=== PATIENT | male | born 1955 | race Caucasian/White ===

== ENCOUNTER 2017-04-10 17:23 | Emergency (ER) | payer BC, OTHER ==
[2017-04-10 17:39] VITALS: BP 146/89
[2017-04-10] MEDS ORDERED: Diphtheria,Pertussis(Acell),Tetanus Vaccine 0.5 ML SDV inactive IM ONE (17:44)
[2017-04-10] MEDS ORDERED: Lidocaine 1% 50 ML MDV INJECT ONE (17:44)
--- NOTE | 2017-04-10 17:55 | EDM.PDOC ---
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 He has a large laceration to the volar aspect of that finger. He has good sensation distally and he can move the finger. His tetanus has been updated about 7 years ago. He is left handed. Onset: Sudden Duration: Minutes: Location: Reports: Upper Extremity, Right (ring finger) Quality: Reports: Sharp Severity: Moderate Improves with: Reports: None Worsens with: Reports: Movement Context: Reports: Activity (He was working cattle) Associated Symptoms: Reports: No Other Symptoms Right 4-Ring finger Pain Score (Numeric/FACES): 6 - Related Data Allergies Allergy/AdvReac Type Severity Reaction Status Date / Time No Known Allergies Allergy Verified 04/10/17 17:39 Home Meds: Home Meds Cephalexin [Keflex] 500 mg PO Q6HR #40 cap 04/10/17 [Rx] Finasteride [Proscar] 5 mg PO DAILY 04/10/17 [History] Hydrocodone/Acetaminophen [Hydrocodon-Acetaminophen 5-325] 1 - 2 each PO Q6HR PRN #20 tablet 04/10/17 [Rx] Tamsulosin [Flomax] 1 tab PO DAILY 04/10/17 [History] Past Medical History Cardiovascular History: Reports: Aneurysm Genitourinary History: Reports: BPH Social & Family History - Tobacco Use Smoking Status *Q: Never Smoker - Caffeine Use Caffeine Use: Reports: Coffee - Recreational Drug Use Recreational Drug Use: No ED ROS GENERAL - Review of Systems Review Of Systems: See Below Constitutional: Reports: No Symptoms HEENT: Reports: No Symptoms Respiratory: Reports: No Symptoms Cardiovascular: Reports: No Symptoms Endocrine: Reports: No Symptoms GI/Abdominal: Reports: No Symptoms : Reports: No Symptoms Musculoskeletal: Reports: Other (Right ring finger laceration) ED EXAM, SKIN/RASH Exam: See Below Exam Limited By: No Limitations General Appearance: Alert, No Apparent Distress Ears: Normal External Exam Nose: Normal Inspection Head: Atraumatic, Normocephalic Neck: Normal Inspection Respiratory/Chest: No Respiratory Distress Extremities: Other (10cm laceration to the volar aspect of the right ring finger. He has good sensation distally and he can move the finger.) ED SKIN PROCEDURES - Laceration/Wound Repair Right Finger Lac/wound length in cm: 10 Appearance: subcutaneous, stellate Distal NVT: neuro & vascular intact, no tendon injury Anesthetic Type: digital Local anesthesia - Lidocaine (Xylocaine): 1% plain Skin prep: chlorhexidine (hibiciens), saline Exploration/Debridement/Repair: wound explored, in a bloodless field, explored to base, no foreign material found Closed with: sutures Suture size: 4-0 # of sutures: 14 Suture type: nylon, interrupted, simple Tetanus status addressed: Yes Complications: No Course - Vital Signs Last Recorded V/S: Last Vital Signs Temp 98.7 F 04/10/17 17:33 Pulse 85 04/10/17 17:33 Resp 16 04/10/17 17:33 BP 146/89 H 04/10/17 17:33 Pulse Ox 99 04/10/17 17:33 - Orders/Labs/Meds Orders: Active Orders 24 hr Category Date Time Status Vaccines to be Administered [RC] PER UNIT ROUTINE Care 04/10/17 17:44 Active Fingers Fourth Digit Rt F8 [CR] Stat Exams 04/10/17 17:44 Taken Meds: Medications Discontinued Medications Generic Name Dose Route Start Last Admin Trade Name Anisha PRN Reason Stop Dose Admin Diphtheria/Tetanus/Acell Pertussis 0.5 ml 04/10/17 17:44 04/10/17 18:03 Boostrix IM 04/10/17 17:45 0.5 ml .ONCE ONE Administration Lidocaine HCl 50 ml 04/10/17 17:44 04/10/17 18:01 Xylocaine 1% INJECT 04/10/17 17:45 50 ml ONETIME ONE Administration - Re-Assessments/Exams Free Text/Narrative Re-Assessment/Exam: 04/10/17 17:54 I have ordered an x-ray of his finger and I will up date his tetanus. 04/10/17 19:08 His x-ray did not show any fracture. I was able to examine the wound and there was no tendon involvement. I sutured the laceration. He had a small triangular patch of skin missing. That should heal by secondary intention. I will have him follow up with Dr Grayson. I will give him something for the pain and keflex to avoid infection. Departure - Departure Time of Disposition: 19:10 Disposition: Home, Self-Care 01 Condition: good Clinical Impression: Laceration of ring finger Qualifiers: Encounter type: initial encounter Qualified Code(s): S61.218A - Laceration without foreign body of other finger without damage to nail, initial encounter - Discharge Information Prescriptions: Cephalexin [Keflex] 500 mg PO Q6HR #40 cap Hydrocodone/Acetaminophen [Hydrocodon-Acetaminophen 5-325] 1 - 2 each PO Q6HR PRN #20 tablet PRN Reason: Pain Referrals: Brent Grayson MD [Physician] - 1 Week Forms: ED Department Discharge Additional Instructions: Soak your finger in warm soapy water 2 times per day and apply antibiotic ointment after. Have the sutures removed in 7 to 10 days. Take the keflex 4 times per day to avoid infection. Take the hydrocodone every 6 hours as needed for pain. Follow up with Dr Grayson next week. Please return if you are worse. Look for any sign of infection such as redness, swelling, pain and drainage. - My Orders Last 24 Hours: My Active Orders 04/10/17 17:44 Vaccines to be Administered [RC] PER UNIT ROUTINE Fingers Fourth Digit Rt F8 [CR] Stat - Assessment/Plan Last 24 Hours: My Active Orders 04/10/17 17:44 Vaccines to be Administered [RC] PER UNIT ROUTINE Fingers Fourth Digit Rt F8 [CR] Stat
--- NOTE | 2017-04-12 07:37 | CR ---
Right fourth finger: Four views centered to the right fourth finger were obtained. Comparison: No previous hand or finger exam. Soft tissue swelling and soft tissue air is identified. Joint spaces are maintained. No acute fracture or other abnormality is seen. Impression: 1. Soft tissue injury as described above. 2. No acute bony abnormality is identified on right fourth finger study. Diagnostic code #3
== END 2017-04-10 19:30 | disposition home or self-care (01) ==
LOC: JD.ED 17:23
DX: S61.214A Laceration without foreign body of right ring finger without damage to nail, initial encounter (principal); Z23 Encounter for immunization; Z79.899 Other long term (current) drug therapy; W23.1XXA Caught, crushed, jammed, or pinched between stationary objects, initial encounter
CPT/HCPCS: 12004; 73140-26-F8; 73140-F8; 90471; 90715; 99283; 99283-25

== ENCOUNTER 2021-10-30 07:39 | Day surgery (SDC) | payer OTHER ==
--- NOTE | 2021-10-30 07:41 | PCM.PREANE ---
Preanesthetic Assessment - Procedure Proposed Procedure: Right cataract extraction with intraocular lens implant - Anesthesia/Transfusion/Family Hx Anesthesia History: Prior Anesthesia Without Reaction Family History of Anesthesia Reaction: No Transfusion History: No Prior Transfusion(s) Intubation History: Unknown - Review of Systems General: No Symptoms Pulmonary: Cough (allergy cough-has had for months) Cardiovascular: No Symptoms Gastrointestinal: No Symptoms Neurological: No Symptoms Other: Reports: None - Physical Assessment NPO Status Date: 10/29/21 NPO Status Time: 22:00 Vital Signs: 101/67 HR 58 96% RR 16 97.7 Height: 1.8 m Weight: 81.647 kg ASA Class: 2 Mental Status: Alert & Oriented x3 Dentition: Reports: Normal Dentition, [place](s), [place] Thyro-Mental Finger Breadths: 3 Mouth Opening Finger Breadths: 3 ROM/Head Extension: Full Lungs: Clear to Auscultation, Normal Respiratory Effort Cardiovascular: Regular Rate, Regular Rhythm, No Murmurs - Allergies Allergies/Adverse Reactions: Allergies Allergy/AdvReac Type Severity Reaction Status Date / Time No Known Allergies Allergy Verified 10/29/21 17:59 - Anesthesia Plan Beta Debbie: Metoprolol Med Last Dose Date: 10/30/21 Med Last Dose Time: 05:00 - Acknowledgements Anesthesia Type Planned: MAC Pt an Appropriate Candidate for the Planned Anesthesia: Yes Alternatives and Risks of Anesthesia Discussed w Pt/Guardian: Yes Pt/Guardian Understands and Agrees with Anesthesia Plan: Yes PreAnesthesia Questionnaire HEENT History: Reports: Cataract, Macular Degeneration Cardiovascular History: Reports: Aneurysm (Abdominal aneurysm and following in cardiology), Other (See Below) (heart problems: hx Afib but regaular today on exam) Respiratory History: Reports: None Gastrointestinal History: Reports: None Genitourinary History: Reports: BPH, Other (See Below) Other Genitourinary History: Frequent urination ADVICE LINE RN History: Reports: None Musculoskeletal History: Reports: Arthritis Neurological History: Reports: None Psychiatric History: Reports: None Endocrine/Metabolic History: Reports: None Hematologic History: Reports: None Immunologic History: Reports: None Oncologic (Cancer) History: Reports: None Dermatologic History: Reports: None - Past Surgical History Cardiovascular Surgical History: Reports: Aneurysm (repair of AAA in past, current has a "small one" per patient and following with cardiology) Musculoskeletal Surgical History: Reports: Other (See Below) (right ankle, right hip replacement, bilateral shoulders replacement, bilateral leg surgeries, right lower arm surgery) - SUBSTANCE USE Tobacco Use Status *Q: Former Tobacco User Tobacco Use Within Last Twelve Months: Snuff/Dip (quit chewing 2014) Second Hand Smoke Exposure: No Days Per Week of Alcohol Use: 0 Number of Drinks Per Day: 0 Total Drinks Per Week: 0 Recreational Drug Use History: No - HOME MEDS Home Medications: Home Meds Celecoxib 10/29/21 [History] Metoprolol Succinate [Toprol XL] 10/29/21 [History] Prostagenex 10/29/21 [History] Vit A/Vit C/Vit E/Zinc/Copper [Eye Multivitamin Tablet] 10/29/21 [History] - CURRENT (IN HOUSE) MEDS Current Meds: Current Medications Brimonidine Tartrate (Brimonidine 0.2% Ophth Soln 5 Ml Bottle) 0 ml EYERT ASDIRECTED NAHOMY Stop: 10/30/21 23:00 Cefuroxime Sodium (Cefuroxime 10 Mg/Ml Syringe) 0 mg EYERT ASDIRECTED NAHOMY Stop: 10/30/21 23:00 Lidocaine HCl (Lidocaine 1% Pf 2 Ml Sdv) 0 ml INJECT ASDIRECTED NAHOMY Stop: 10/30/21 23:00 Phenylephrine HCl (Phenylephrine 2.5% Ophth Soln 2 Ml Bot) 0 ml EYERT ASDIRECTED NAHOMY Stop: 10/30/21 23:00 Pilocarpine HCl (Pilocarpine 4% Ophth Soln 15 Ml Bot) 0 ml EYERT ASDIRECTED NAHOMY Stop: 10/30/21 23:00 Polymyxin/Trimethoprim Sulfate (Polymyxin B/Trimethoprim 10 Ml Bottle) 0 ml EYERT ASDIRECTED NAHOMY Stop: 10/30/21 23:00 Tetracaine HCl (Tetracaine Hcl/Pf 0.5% 4 Ml Bottle) 0 ml EYEBOTH ASDIRECTED NAHOMY Stop: 10/30/21 23:00 Tropicamide (Tropicamide 1% Ophth Soln 15 Ml Bottle) 0 ml EYERT ASDIRECTED NAHOMY Stop: 10/30/21 23:00
[2021-10-30] MEDS: Polymyxin B/Trimethoprim 10 ML Bottle EYERT SCH ×4 (08:08→10:02)
[2021-10-30] MEDS: Brimonidine 0.2% Ophth Soln 5 ML Bottle EYERT SCH ×4 (08:12→10:02)
[2021-10-30] MEDS: Phenylephrine 2.5% Ophth Soln 2 ML Bot EYERT SCH ×6 (08:16→09:39)
[2021-10-30] MEDS: Tropicamide 1% Ophth Soln 15 ML Bottle EYERT SCH ×4 (08:20→08:56)
[2021-10-30] MEDS: Lidocaine 1% PF 2 ML SDV INJECT SCH ×2 (09:09→09:48)
[2021-10-30] MEDS: Cefuroxime 10 MG/ML SYRINGE EYERT SCH ×2 (09:09→10:01)
[2021-10-30] MEDS: Tetracaine HCl/PF 0.5% 4 ML Bottle EYEBOTH SCH ×5 (09:09→09:47)
[2021-10-30] MEDS: Pilocarpine 4% Ophth Soln 15 ML Bot EYERT SCH ×2 (09:10→10:02)
--- NOTE | 2021-10-30 10:03 | PCM48HPAN ---
Post Anesthesia Note - EVALUATION WITHIN 48HRS OF ANESTHETIC Vital Signs in Normal Range: Yes Patient Participated in Evaluation: Yes Respiratory Function Stable: Yes Airway Patent: Yes Cardiovascular Function Stable: Yes Hydration Status Stable: Yes Pain Control Satisfactory: Yes Nausea and Vomiting Control Satisfactory: Yes Mental Status Recovered: Yes
[2021-10-30 10:26] VITALS: BP 117/77; PULSE 60
== END 2021-10-30 10:12 | disposition home or self-care (01) ==
LOC: JD.SDS 07:39
PROVIDERS: ATTEND Ophthalmology
DX: H25.813 Combined forms of age-related cataract, bilateral (principal); H35.3131 Nonexudative age-related macular degeneration, bilateral, early dry stage; H35.363 Drusen (degenerative) of macula, bilateral; H02.831 Dermatochalasis of right upper eyelid; H02.834 Dermatochalasis of left upper eyelid; H16.103 Unspecified superficial keratitis, bilateral; H16.223 Keratoconjunctivitis sicca, not specified as Sjogren's, bilateral; Z98.890 Other specified postprocedural states; Z79.899 Other long term (current) drug therapy; Z87.891 Personal history of nicotine dependence
CPT/HCPCS: 66984; J0697; C1780